=== PATIENT | female | born 1980 | race Two or more races ===

== ENCOUNTER 2017-07-04 10:27 | Emergency (ER) | payer SELFPAY ==
[2017-07-04 10:36] VITALS: BP 110/58; PULSE 114; TEMP 98.5; BMI 26.2
[2017-07-04] MEDS ORDERED: predniSONE 20 MG TABLET (UD) PO ONE (11:57)
[2017-07-04] MEDS ORDERED: predniSONE 20 MG TABLET (UD) ONE (12:05)
--- NOTE | 2017-07-04 12:15 | PDOC ---
History of Present Illness - General Chief Complaint: Asthma Stated Complaint: ASTHMA Time Seen by Provider: 07/04/17 11:26 History Source: Patient Exam Limitations: No Limitations - History of Present Illness Initial Comments: 07/04/17 12:11 37 yr female history of asthma no intubations or hospitalizations presents to ER with c/o cough and chest tight for 4 days due to change in weather. Pt states she has cough, no fever. Pt is speaking full sentences. Past History - Past Medical History Allergies/Adverse Reactions: Allergies Allergy/AdvReac Type Severity Reaction Status Date / Time No Known Allergies Allergy Verified 07/04/17 10:34 Home Medications: Ambulatory Orders Benzonatate [Tessalon Pearls -] 200 mg PO TID #42 cap 07/04/17 Prednisone [Deltasone -] 40 mg PO DAILY #10 tablet 07/04/17 Asthma: Yes - Immunization History Immunization Up to Date: Yes - Suicide/Smoking/Psychosocial Hx Smoking Status: No Smoking History: Never smoked Years of Tobacco Use: 0 Number of Cigarettes Smoked Daily: 0 Cigars Per Day: 0 Hx Alcohol Use: Yes (OCCASIONALLY) Drug/Substance Use Hx: No Substance Use Type: Alcohol *Physical Exam - Vital Signs Last Vital Signs Temp Pulse Resp BP Pulse Ox 98.5 F 114 H 20 110/58 100 07/04/17 10:34 07/04/17 10:34 07/04/17 10:34 07/04/17 10:34 07/04/17 10:34 - Physical Exam General Appearance: Yes: Nourished, Appropriately Dressed HEENT: positive: EOMI, RAINER, Normal ENT Inspection, TMs Normal, Pharynx Normal Neck: positive: Supple Respiratory/Chest: positive: Lungs Clear, Normal Breath Sounds. negative: Rhonchi, Wheezing Cardiovascular: positive: Regular Rhythm, Regular Rate Gastrointestinal/Abdominal: positive: Normal Bowel Sounds, Soft Extremity: positive: Normal Capillary Refill, Normal Inspection, Normal Range of Motion Integumentary: positive: Normal Color, Dry, Warm Neurologic: positive: Fully Oriented, Alert, Normal Mood/Affect, Normal Response , Motor Strength 5/5 ED Treatment Course - Medications Given in the ED: ED Medications Discontinued Medications Generic Name Dose Route Start Last Admin Trade Name Freq PRN Reason Stop Dose Admin Prednisone 60 mg 07/04/17 11:57 07/04/17 12:06 Deltasone - PO 07/04/17 11:58 60 mg ONCE ONE Administration Medical Decision Making - Medical Decision Making 07/04/17 12:12 cc: cough chest tight no shortness of breath pt had duoneb in traige and is now clear no wheezing pt feels better will give prednisone and tylenol 07/04/17 12:22 pt feels much better after nebulizer in triage will dc home strict follow up with PMD *DC/Admit/Observation/Transfer Diagnosis at time of Disposition: Asthmatic bronchitis - Discharge Dispostion Disposition: HOME Condition at time of disposition: Improved - Prescriptions Prescriptions: Prednisone [Deltasone -] 40 mg PO DAILY #10 tablet Benzonatate [Tessalon Pearls -] 200 mg PO TID #42 cap - Referrals Referrals: Violeta Etienne MD [Primary Care Provider] - - Patient Instructions Additional Instructions: drink pleanty of water to stay hydrated increase vitamin c and zinc intake to boost immune system take the next does prednisone tomorrow use your inhaler as needed tessalon for cough as needed
== END 2017-07-04 12:25 | disposition home or self-care (01) ==
LOC: JERFT 10:27
DX: J45.998 Other asthma (principal)
CPT/HCPCS: 99281-25

== ENCOUNTER 2017-07-06 13:23 | Emergency (ER) | payer SELFPAY ==
[2017-07-06 13:26] VITALS: BMI 26.2
[2017-07-06] MEDS ORDERED: ALBUTEROL SO4 2.5/IPRATROPIUM 0.5 INH SOL 3 ML VIAL.NEB. NEB ONE ×2 (14:23→14:43)
[2017-07-06] MEDS ORDERED: predniSONE 20 MG TABLET (UD) PO ONE (14:40)
--- NOTE | 2017-07-06 14:40 | PDOC ---
History of Present Illness - General Chief Complaint: Asthma Stated Complaint: SOB Time Seen by Provider: 07/06/17 14:17 History Source: Patient Exam Limitations: No Limitations - History of Present Illness Initial Comments: 07/06/17 14:31 The patient is a 37F with a PMH of asthma who presents to the ED with complaints of chest tightness. The patient states that she was here 2 days ago and felt better after a duoneb treatment and was discharged with an albuterol inhaler and prednisone. She has not taken her prednisone today. Her only complaint is chest tightness which started this morning without relief from her inhaler. She denies CP, SOB, sore throat, fever and chills. Past History - Past Medical History Allergies/Adverse Reactions: Allergies Allergy/AdvReac Type Severity Reaction Status Date / Time No Known Allergies Allergy Verified 07/06/17 13:26 Home Medications: Ambulatory Orders Benzonatate [Tessalon Pearls -] 200 mg PO TID #42 cap 07/04/17 Prednisone [Deltasone -] 40 mg PO DAILY #10 tablet 07/04/17 Asthma: Yes COPD: No - Immunization History Immunization Up to Date: Yes - Suicide/Smoking/Psychosocial Hx Smoking Status: No Smoking History: Never smoked Years of Tobacco Use: 0 Number of Cigarettes Smoked Daily: 0 Cigars Per Day: 0 Hx Alcohol Use: Yes (SOCIAL) Drug/Substance Use Hx: No Substance Use Type: Alcohol Review of Systems - Review of Systems Able to Perform ROS?: Yes Comments:: 07/06/17 14:41 GENERAL/CONSTITUTIONAL: No fever or chills. No weakness. HEAD, EYES, EARS, NOSE AND THROAT: No change in vision. No ear pain or discharge. No sore throat. GASTROINTESTINAL: No nausea, vomiting, diarrhea, constipation, or abdominal pain. GENITOURINARY: No dysuria, frequency, hematuria, or change in urination. CARDIOVASCULAR: Positive for chest tightness. No chest pain, palpitations, or lightheadedness. RESPIRATORY: Positive for shortness of breath with deep inhalation, cough, and wheezing. No shortness of breath or hemoptysis. MUSCULOSKELETAL: No joint or muscle swelling or pain. No neck or back pain. SKIN: No rash or lesions. NEUROLOGIC: No headache, numbness, tingling, weakness, loss of consciousness, or change in strength/sensation. ENDOCRINE: No increased thirst. No abnormal weight change. HEMATOLOGIC/LYMPHATIC: No anemia, easy bleeding, or history of blood clots. ALLERGIC/IMMUNOLOGIC: No hives or skin allergy. Is the patient limited Uzbek proficient: No *Physical Exam - Vital Signs Last Vital Signs Temp Pulse Resp BP Pulse Ox 97.3 F L 93 H 20 114/77 99 07/06/17 13:24 07/06/17 13:24 07/06/17 13:24 07/06/17 13:24 07/06/17 13:24 - Physical Exam Comments: 07/06/17 14:42 GENERAL: Well developed, well nourished. Awake and alert. No acute distress. HEENT: Normocephalic, atraumatic. Moist mucous membranes. Oropharynx is clear. NECK: Supple. Full ROM. No JVD. CARDIOVASCULAR: Regular rate and rhythm. No murmurs, rubs, or gallops. Distal pulses are 2+ and symmetric. PULMONARY: Very mild wheezing in LUIS MANUEL lung field. No evidence of respiratory distress. No rales, crackles, or rhonchi. ABDOMINAL: Soft. Non-tender. Non-distended. No rebound or guarding. No organomegaly. Normoactive bowel sounds. GENITOURINARY: No CVA tenderness bilaterally. MUSCULOSKELETAL: Normal range of motion at all joints. No bony deformities or tenderness. EXTREMITIES: No cyanosis. No clubbing. No edema. No calf tenderness. SKIN: Warm and dry. Normal capillary refill. No rashes. No jaundice. NEUROLOGICAL: Alert, awake, appropriate. Normal speech. Gait is normal without ataxia. PSYCHIATRIC: Cooperative. Good eye contact. Appropriate mood and affect. Medical Decision Making - Medical Decision Making 07/06/17 14:43 The patient is a 37F with a PMH of asthma who is presenting with complaints of chest tightness. The patient is not in respiratory distress, has clear lung tran except for a very mild expiratory wheeze in her LUIS MANUEL lung field. I will give her 1 duoneb treatment and prednisone. Because this is her second presentation in 2 days, I will also order a CXR to r/o PNA. Will reassess when labs/imaging return. 07/06/17 18:53 Patient states she is feeling better. Wheezes are no longer present. I have discussed that the patient must follow up with her PCP. She agrees and is ready for d/c. *DC/Admit/Observation/Transfer Diagnosis at time of Disposition: Asthma Qualifiers: Asthma severity: mild Asthma persistence: unspecified Asthma complication type : uncomplicated Qualified Code(s): J45.909 - Unspecified asthma, uncomplicated; J45.909 - Unspecified asthma, uncomplicated; J45.909 - Unspecified asthma, uncomplicated - Discharge Dispostion Disposition: HOME Condition at time of disposition: Improved Admit: No - Patient Instructions Printed Discharge Instructions: Asthma -- Adult Additional Instructions: Please return to the ER if symptoms persist, worsen, or new symptoms arise. Please follow up with your primary care physician in 2-3 days. Please return to the ER if you have any signs or symptoms of chest pain, shortness of breath, uncontrollable fever, chills, nausea, vomiting, numbness, tingling, or weakness in any part of your body, changes in vision, or slurred speech. Please continue to take your medications as prescribed. Print Language: PAKISTANI
[2017-07-06] MEDS ORDERED: predniSONE 20 MG TABLET (UD) ONE (14:44)
--- NOTE | 2017-07-06 18:52 | PDOC ---
Attending Attestation - Resident Resident Name: LexjenniferdhruvJose - ED Attending Attestation I have performed the following: I have examined & evaluated the patient, The case was reviewed & discussed with the resident, I agree w/resident's findings & plan, Exceptions are as noted - Medical Decision Making 07/06/17 18:51 37 yo F wtih h/o asthma here wtih wheezing c/o chest tightness. no h/o travel. no h/o pe or dvt. on steroids and nebs but didn't take them yet today. minimal wheezing on initial exam , on my repeat examination now no wheezing. plan : nebs. given daily steroid, cxr r/o associated infection. cxr negative. pt feels better. dc home with close followup. will see dr. clark or brenda. <Estefania Burnett - Last Filed: 07/06/17 18:51> - HPI HPI: 07/06/17 18:52 Pt is a 37 yo F with a PMHx of Asthma who presents with persistent SOB. Patient was seen on 07/04/2017 for the same complaint and was sent home with Albuterol pump and prednisone. Patient did not take her medications and states her symptoms have worsened. Patient reports new chest tightness and SOB upon deep inspiration. Patient denies any fever/chills. Patient denies any recent travel, immobility, sick contacts. - Physicial Exam PE: 07/06/17 18:53 GENERAL: Awake, alert, and fully oriented, in no acute distress HEAD: No signs of trauma EYES: PERRLA, EOMI, sclera anicteric, conjunctiva clear ENT: Auricles normal inspection, nares patent, Moist mucosa NECK: Normal ROM, supple, no lymphadenopathy, JVD, or masses LUNGS: Breath sounds equal, clear to auscultation bilaterally. No wheezes, and no crackles (post treatment) HEART: Regular rate and rhythm, normal S1 and S2, no murmurs, rubs or gallops ABDOMEN: Soft, nontender, normoactive bowel sounds. No guarding, no rebound. No masses EXTREMITIES: Normal range of motion, no edema. No clubbing or cyanosis. No cords, erythema, or tenderness NEUROLOGICAL: Alert and oriented x3/ SKIN: Warm, Dry, normal turgor, no rashes or lesions noted. - Medical Decision Making 07/06/17 18:53 Documentation prepared by Landy Ahmadi, acting as medical terminologist for Estefania Burnett MD <Landy Ahmadi - Last Filed: 07/06/17 18:53>
[2017-07-06 19:04] VITALS: BP 116/70; PULSE 82; TEMP 98.2
== END 2017-07-06 19:05 | disposition home or self-care (01) ==
LOC: JER 13:23
PROC: 3E0F7GC Introduction of Other Therapeutic Substance into Respiratory Tract, Via Natural or Artificial Opening (ICD-10-PCS; principal; 2017-07-06)
DX: J45.909 Unspecified asthma, uncomplicated (principal)
CPT/HCPCS: 71020-TC; 84703; 99282-25

== ENCOUNTER 2018-10-08 08:58 | Emergency (ER) | payer SELFPAY | END 2018-10-08 10:45 | disposition home or self-care (01) | LOC: JERFT 08:58 ==

== ENCOUNTER 2018-11-02 12:08 | Emergency (ER) | payer SELFPAY ==
[2018-11-02 12:25] VITALS: BP 150/80; PULSE 95; TEMP 98.4; BMI 26.2
[2018-11-02] MEDS ORDERED: ALBUTEROL SO4 2.5/IPRATROPIUM 0.5 INH SOL 3 ML VIAL.NEB. NEB ONE (12:25)
--- NOTE | 2018-11-02 12:48 | PDOC ---
History of Present Illness - General Chief Complaint: Asthma Stated Complaint: ASTHMA Time Seen by Provider: 11/02/18 12:30 Exam Limitations: Clinical Condition - History of Present Illness Initial Comments: 11/02/18 12:39 Patient with history of asthma present with complaint of three-day history of cough, nasal congestion with intermittent asthma exacerbation which has been worsening this morning with shortness of breath. Patient reports she has been using rescue inhaler more often in the past 3 days. Patient denies fever, chills , dizziness. Patient denies any other symptoms Timing/Duration: getting worse Past History - Past Medical History Allergies/Adverse Reactions: Allergies Allergy/AdvReac Type Severity Reaction Status Date / Time No Known Allergies Allergy Verified 10/08/18 09:09 Home Medications: Ambulatory Orders Cyclobenzaprine HCl 10 mg PO Q8H PRN #14 tablet 10/08/18 Benzonatate [Tessalon Pearls -] 100 mg PO TID PRN #21 capsule 11/02/18 Ipratropium [place] 2 spray NS BID PRN #1 spray 11/02/18 Loratadine 10 mg PO DAILY #10 tablet 11/02/18 Prednisone [Deltasone] 20 mg PO BID 4 Days #8 tablet 11/02/18 Asthma: Yes COPD: No - Immunization History Immunization Up to Date: Yes - Suicide/Smoking/Psychosocial Hx Smoking Status: No Smoking History: Never smoked Years of Tobacco Use: 0 Number of Cigarettes Smoked Daily: 0 Cigars Per Day: 0 Hx Alcohol Use: Yes (SOCIAL) Drug/Substance Use Hx: No Substance Use Type: Alcohol Review of Systems - Review of Systems Able to Perform ROS?: Yes Is the patient limited Malay proficient: No Constitutional: Yes: See HPI. No: Chills, Fever, Malaise, Weakness HEENTM: Yes: Symptoms Reported, See HPI, Nose Congestion. No: Eye Pain, Blurred Vision, Tearing, Recent change in vision, Double Vision, Cataracts, Ear Pain, Ocular Prothesis, Ear Discharge, Nose Pain, Tinnitus, Nose Bleeding, Hearing Loss, Throat Pain, Throat Swelling, Mouth Pain, Dental Problems, Difficulty Swallowing, Mouth Swelling, Other Respiratory: Yes: Symptoms reported, See HPI, Cough, Shortness of Breath ( intermittent), Wheezing. No: Orthopnea, SOB with Exertion, SOB at Rest, Stridor , Productive cough, Hemoptysis, Other Cardiac (ROS): No: Symptoms Reported, See HPI, Chest Pain, Edema, Irregular Heart Rate, Lightheadedness, Palpitations, Syncope, Chest Tightness, Other ABD/GI: No: Constipated, Diarrhea, Nausea, Vomiting, Abdominal cramping All Other Systems: Reviewed and Negative *Physical Exam - Vital Signs Last Vital Signs Temp Pulse Resp BP Pulse Ox 98.4 F 95 H 20 150/80 99 11/02/18 12:18 11/02/18 12:18 11/02/18 12:18 11/02/18 12:18 11/02/18 12:18 - Physical Exam Comments: 11/02/18 12:40 GENERAL: Well developed, well nourished. Awake and alert. No acute distress. HEENT: Mild bilateral nasal congestion. Normocephalic, atraumatic. PERRLA, EOMI. No conjunctival pallor. Sclera are non-icteric. Moist mucous membranes. Oropharynx is clear. NECK: Supple. Full ROM. CARDIOVASCULAR: Regular rate and rhythm. No murmurs, rubs, or gallops. Distal pulses are 2+ and symmetric. PULMONARY: Mild diffuse wheezing.No evidence of respiratory distress. No rales or rhonchi. ABDOMINAL: Soft. Non-tender. Non-distended. No rebound or guarding. No organomegaly. Normoactive bowel sounds. MUSCULOSKELETAL Normal range of motion at all joints. SKIN: Warm and dry. No cyanosis. Normal capillary refill. No rashes. No jaundice. NEUROLOGICAL: Alert, awake, appropriate. Gait is normal without ataxia. PSYCHIATRIC: Cooperative. Good eye contact. Appropriate mood General Appearance: Yes: Nourished, Appropriately Dressed. No: Apparent Distress Moderate Sedation - Procedure Monitoring Vital Signs: Procedure Monitoring Vital Signs Temperature 98.4 F 11/02/18 12:18 Pulse Rate 95 H 11/02/18 12:18 Respiratory Rate 20 11/02/18 12:18 Blood Pressure 150/80 11/02/18 12:18 O2 Sat by Pulse Oximetry (%) 99 11/02/18 12:18 ED Treatment Course - Medications Given in the ED: ED Medications Discontinued Medications Generic Name Dose Route Start Last Admin Trade Name Freq PRN Reason Stop Dose Admin Albuterol/Ipratropium 2 amp 11/02/18 12:25 11/02/18 12:25 Duoneb - NEB 11/02/18 12:26 2 amp NOW ONE Administration Medical Decision Making - Medical Decision Making 11/02/18 12:42 Patient with history of asthma present with complaint of three-day history of URI symptoms with asthma exacerbation which has been worsening this morning. Exam significant for mild diffuse wheezing with no respiratory distress. Nebulizer treatment with Atrovent and albuterol ordered. Patient be discharged home on prednisone for 4 days, Tessalon Perles for cough antihistamine and nasal spray for nasal congestion with PCP follow-up. *DC/Admit/Observation/Transfer Diagnosis at time of Disposition: Cough Asthma Qualifiers: Asthma severity: mild Asthma persistence: intermittent Asthma complication type : with acute exacerbation Qualified Code(s): J45.21 - Mild intermittent asthma with (acute) exacerbation URI (upper respiratory infection) Qualifiers: URI type: unspecified URI Qualified Code(s): J06.9 - Acute upper respiratory infection, unspecified - Discharge Dispostion Disposition: HOME Condition at time of disposition: Stable Decision to Admit order: No - Prescriptions Prescriptions: Benzonatate [Tessalon Pearls -] 100 mg PO TID PRN #21 capsule PRN Reason: Cough Ipratropium [place] 2 spray NS BID PRN #1 spray PRN Reason: nasal congestion Loratadine 10 mg PO DAILY #10 tablet Prednisone [Deltasone] 20 mg PO BID 4 Days #8 tablet - Referrals - Patient Instructions Printed Discharge Instructions: DI for Pneumonia -- Adult Additional Instructions: Take medications as prescribed. Come back to the emergency room if worsening shortness of breath or worsening asthma symptoms. Follow-up with primary care as needed. - Post Discharge Activity
[2018-11-02] MEDS ORDERED: methylPREDNISolone NA SUCC 125 MG/2 ML VIAL IM ONE (12:58)
[2018-11-02] MEDS ORDERED: methylPREDNISolone NA SUCC 125 MG/2 ML VIAL ONE (13:01)
== END 2018-11-02 13:21 | disposition home or self-care (01) ==
LOC: JERFT 12:08
PROC: 3E0F7GC Introduction of Other Therapeutic Substance into Respiratory Tract, Via Natural or Artificial Opening (ICD-10-PCS; principal; 2018-11-02)
PROC: 3E0233Z Introduction of Anti-inflammatory into Muscle, Percutaneous Approach (ICD-10-PCS; 2018-11-02)
DX: J45.21 Mild intermittent asthma with (acute) exacerbation (principal); J06.9 Acute upper respiratory infection, unspecified
CPT/HCPCS: 99281-25

== ENCOUNTER 2018-11-07 09:26 | Emergency (ER) | payer SELFPAY ==
[2018-11-07 09:41] VITALS: BP 123/75; PULSE 112; TEMP 98.2; BMI 25.8
[2018-11-07] MEDS ORDERED: ALBUTEROL SO4 2.5/IPRATROPIUM 0.5 INH SOL 3 ML VIAL.NEB. NEB ONE ×2 (11:26→11:27)
--- NOTE | 2018-11-07 11:39 | PDOC ---
Documentation entered by Emeli Stevens SCRIBE, acting as scribe for Deep Brooks MD. History of Present Illness - General Chief Complaint: Respiratory Stated Complaint: ASTHMA Time Seen by Provider: 11/07/18 10:07 History Source: Patient Exam Limitations: No Limitations - History of Present Illness Initial Comments: 11/07/18 11:45 The patient is a 38 year old female, with a significant past medical history of asthma (albuterol , who presents to the emergency department with persistent cough since 10/30/18. The patient states she was seen here on 11/02/18 for cough and cold symptoms where she was prescribed steroids and tessalon perles. She states her symptoms have not gotten worse, however, reports her cough has stayed constant. She states her son had the flu about 1 week prior to her developing her cough and cold symptoms. She states she did not receive a flu vaccine this season. She states her symptoms feel like her asthma and reports nebulizer treatments offer temporary relief of her symptoms. The patient denies chest pain, shortness of breath, headache and dizziness. The patient denies fever, chills, nausea, vomit, diarrhea and constipation. The patient denies dysuria, frequency, urgency and hematuria. Allergies: NKDA Past surgical history: none reported Social history: denies ETOH, tobacco, and illicit drugs Past History - Past Medical History Allergies/Adverse Reactions: Allergies Allergy/AdvReac Type Severity Reaction Status Date / Time No Known Allergies Allergy Verified 11/07/18 09:35 Home Medications: Ambulatory Orders Cyclobenzaprine HCl 10 mg PO Q8H PRN #14 tablet 10/08/18 Benzonatate [Tessalon Perle -] 100 mg PO TID PRN #21 capsule 11/02/18 Ipratropium [place] 2 spray NS BID PRN #1 spray 11/02/18 Loratadine 10 mg PO DAILY #10 tablet 11/02/18 Albuterol Sulfate Inhaler - [Ventolin HFA Inhaler -] 1 - 2 inh PO QID 11/07/18 Albuterol Sulfate Inhaler - [Ventolin Hfa Inhaler -] 1 - 2 inh PO Q4H #1 inhaler 11/07/18 predniSONE [Deltasone -] 60 mg PO DAILY #24 tablet 11/07/18 Asthma: Yes COPD: No - Immunization History Immunization Up to Date: Yes - Suicide/Smoking/Psychosocial Hx Smoking Status: No Smoking History: Never smoked Years of Tobacco Use: 0 Number of Cigarettes Smoked Daily: 0 Cigars Per Day: 0 Hx Alcohol Use: Yes (SOCIAL) Drug/Substance Use Hx: No Substance Use Type: Alcohol Review of Systems - Review of Systems Able to Perform ROS?: Yes Constitutional: No: Chills, Fever HEENTM: Yes: Nose Congestion. No: Throat Swelling Respiratory: Yes: Cough, Shortness of Breath Cardiac (ROS): No: Chest Pain, Edema, Palpitations, Syncope ABD/GI: No: Diarrhea, Vomiting Neurological: No: Headache All Other Systems: Reviewed and Negative *Physical Exam - Vital Signs Last Vital Signs Temp Pulse Resp BP Pulse Ox 98.2 F 112 H 20 123/75 100 11/07/18 09:39 11/07/18 09:39 11/07/18 09:39 11/07/18 09:39 11/07/18 09:39 - Physical Exam Comments: 11/07/18 11:45 GENERAL: The patient is awake, alert, and fully oriented, in no acute distress. HEAD: Normal with no signs of trauma. EYES: Pupils equal, round and reactive to light, extraocular movements intact, sclera anicteric, conjunctiva clear with no pallor. ENT: Ears normal, nares patent, oropharynx clear without exudates. Moist mucous membranes. NECK: Normal range of motion, supple without lymphadenopathy, JVD, or masses. LUNGS: Breath sounds equal, clear to auscultation bilaterally. No wheeze/ crackles. HEART: Regular rate and rhythm, normal S1 and S2 without murmur or rub. ABDOMEN: Soft/nontender/nondistended. BS wnl. No guarding or rebound. No palpable masses. No hepatosplenomegaly. EXTREMITIES: Normal range of motion, no edema. No clubbing or cyanosis. No cords, erythema, or tenderness. NEUROLOGICAL: Cranial nerves II through XII grossly intact. Normal speech, normal gait. PSYCH: Normal mood, normal affect. SKIN: Warm, Dry, normal turgor, no rashes or lesions noted. Moderate Sedation - Procedure Monitoring Vital Signs: Procedure Monitoring Vital Signs Temperature 98.2 F 11/07/18 09:39 Pulse Rate 112 H 11/07/18 09:39 Respiratory Rate 20 11/07/18 09:39 Blood Pressure 123/75 11/07/18 09:39 O2 Sat by Pulse Oximetry (%) 100 11/07/18 09:39 Heart Score/ECG Review #1 ECG reviewed & interpreted by me at: 11:58 General ECG Interpretation: Sinus Rhythm, Normal Rate (94 (during nebulizer)), Normal Intervals (qtc 445, IRBBB), No acute ischemic changes ED Treatment Course - RADIOLOGY Radiology Studies Ordered: Category Date Time Status CHEST PA & LAT [RAD] Stat Radiology 11/07/18 11:10 Ordered - Medications Given in the ED: ED Medications Discontinued Medications Generic Name Dose Route Start Last Admin Trade Name Freq PRN Reason Stop Dose Admin Albuterol/Ipratropium 1 amp 11/07/18 11:26 11/07/18 11:36 Duoneb - NEB 11/07/18 11:27 1 amp ONCE ONE Administration Medical Decision Making - Medical Decision Making 11/07/18 11:36 38-year-old female with history of mild intermittent asthma presents for second visit for persistent asthma exacerbation. Patient developed URI symptoms about 2 weeks ago after her son had been recently diagnosed with influenza, she herself never develops fevers or body aches. Her symptoms are isolated to nasal congestion and cough which triggered an asthma exacerbation. She was seen at urgent care and prescribed nebulizers and steroids (prednisone 20 mg twice daily for 4 days) and while her symptoms have not improved, they have also not worsened. Denies any fevers or chills, denies any lung pain, presents for evaluation. No DVT or PE risk factors. Tachycardic at triage, heart rate 80 on my examination Well-appearing with intermittent dry cough triggered by talking and deep inspiration No wheezing, no focally decreased breath sounds, good air entry without accessory muscle use Heart is regular without murmurs No edema or calf tenderness 38-year-old female with persistent asthma exacerbation, rule out underlying influenza or pneumonia. Suspect could benefit from higher dose steroids. EKG given tachycardia at triage, though now resolved Chest x-ray, influenza swab Nebulizer Reassess and disposition accordingly 11/07/18 12:45 Feels better after nebs, chest x-ray negative for pneumonia, influenza negative , EKG sinus with normal rate. Will discharge on increased steroid dosing, understands return criteria. *DC/Admit/Observation/Transfer Diagnosis at time of Disposition: URI (upper respiratory infection) Qualifiers: URI type: unspecified URI Qualified Code(s): J06.9 - Acute upper respiratory infection, unspecified Asthma Qualifiers: Asthma severity: mild Asthma persistence: intermittent Asthma complication type : with acute exacerbation Qualified Code(s): J45.21 - Mild intermittent asthma with (acute) exacerbation - Discharge Dispostion Disposition: HOME Condition at time of disposition: Improved - Prescriptions Prescriptions: Albuterol Sulfate Inhaler - [Ventolin Hfa Inhaler -] 1 - 2 inh PO Q4H #1 inhaler predniSONE [Deltasone -] 60 mg PO DAILY #24 tablet - Referrals Referrals: Zhao Mariano MD [Staff Physician] - - Patient Instructions Printed Discharge Instructions: DI for Asthma -- Adult Additional Instructions: Activity as tolerated. Stay hydrated. Flu tests and a chest x-ray were normal today. The symptoms are likely due to a viral upper respiratory infection that exacerbated your asthma. Continue the Ventolin pump as needed. Increase the steroid dosing as prescribed including the taper. Continue your medications as previously prescribed by your physician. You should follow up with a primary doctor as soon as possible regarding today' s emergency department visit. Consider following up with the [facility] as discussed. Return to the emergency department for any new or concerning symptoms, particularly persistent or worsening shortness of breath or wheezing, persistent or worsening cough or fevers or chills, chest pain. - Post Discharge Activity Deep Brooks MD, MD/DO: This documentation has been prepared by the Rodney willett Amanda, SCRIBE, under my direction and personally reviewed by me in its entirety. I confirm that the documentation accurately reflects all work, treatment, procedures, and medical decision making performed by me.
--- NOTE | 2018-11-07 16:12 | EKG ---
Test Reason : Blood Pressure : / mmHG Vent. Rate : 094 BPM Atrial Rate : 094 BPM P-R Int : 148 ms QRS Dur : 080 ms QT Int : 356 ms P-R-T Axes : 067 001 019 degrees QTc Int : 445 ms NORMAL SINUS RHYTHM POSSIBLE LEFT ATRIAL ENLARGEMENT BORDERLINE ECG WHEN COMPARED WITH ECG OF 24-NOV-2015 10:49, NONSPECIFIC T WAVE ABNORMALITY NOW EVIDENT IN ANTERIOR LEADS Confirmed by MD Foster, Galdino ([id number]) on 11/07/2018 4:12:45 PM Referred By: Confirmed By:Galdino Hutchison MD
== END 2018-11-07 13:07 | disposition home or self-care (01) ==
LOC: JER 09:26
PROC: 3E0F7GC Introduction of Other Therapeutic Substance into Respiratory Tract, Via Natural or Artificial Opening (ICD-10-PCS; principal; 2018-11-07)
DX: J45.21 Mild intermittent asthma with (acute) exacerbation (principal); J06.9 Acute upper respiratory infection, unspecified
CPT/HCPCS: 71046-TC-FY; 87804; 93005; 93010; 99282-25

== ENCOUNTER 2018-12-05 14:53 | Emergency (ER) | payer SELFPAY ==
[2018-12-05 15:08] VITALS: BP 117/68; PULSE 89; TEMP 98.3; BMI 26.2
--- NOTE | 2018-12-05 15:10 | PDOC ---
Rapid Medical Evaluation Chief Complaint: Chest Pain Time Seen by Provider: 12/05/18 15:06 Medical Evaluation: Allergies Allergy/AdvReac Type Severity Reaction Status Date / Time No Known Allergies Allergy Verified 11/07/18 09:35 12/05/18 15:07 The patient presents with a chief complaint of: intermittent lt sided cp lasting seconds I have performed a brief in-person evaluation of this patient: Pertinent physical exam findings: ambulatory, in no respiratory distress, vss, reproducible CP at left 2 nd ICS from sternal border to MCL , RRR I have ordered the following: ekg, toradol IM The patient will proceed to the ED for further evaluation. Discharge Disposition - Diagnosis Chest pain - Referrals - Patient Instructions - Post Discharge Activity
--- NOTE | 2018-12-05 15:39 | PDOC ---
History of Present Illness - General Chief Complaint: Chest Pain Stated Complaint: CHEST PAIN Time Seen by Provider: 12/05/18 15:06 - History of Present Illness Initial Comments: 12/05/18 15:36 38-year-old female without comorbidities presents for evaluation of left-sided chest pain 1 days. She states her pain started after cough. She states she just did a course of antibiotics and got over a one-month illness of bronchitis. Her chest pain she states is sharp and fleeting post tussive pain. No radiation of symptoms. Asymptomatic otherwise. No other related symptoms. Past History - Past Medical History Allergies/Adverse Reactions: Allergies Allergy/AdvReac Type Severity Reaction Status Date / Time No Known Allergies Allergy Verified 12/05/18 15:08 Home Medications: Ambulatory Orders Cyclobenzaprine HCl 10 mg PO Q8H PRN #14 tablet 10/08/18 Benzonatate [Tessalon Perle -] 100 mg PO TID PRN #21 capsule 11/02/18 Ipratropium [place] 2 spray NS BID PRN #1 spray 11/02/18 Loratadine 10 mg PO DAILY #10 tablet 11/02/18 Albuterol Sulfate Inhaler - [Ventolin HFA Inhaler -] 1 - 2 inh PO QID 11/07/18 Albuterol Sulfate Inhaler - [Ventolin Hfa Inhaler -] 1 - 2 inh PO Q4H #1 inhaler 11/07/18 predniSONE [Deltasone -] 60 mg PO DAILY #24 tablet 11/07/18 Asthma: Yes COPD: No - Immunization History Immunization Up to Date: Yes - Suicide/Smoking/Psychosocial Hx Smoking Status: No Smoking History: Never smoked Years of Tobacco Use: 0 Have you smoked in the past 12 months: No Number of Cigarettes Smoked Daily: 0 Cigars Per Day: 0 Information on smoking cessation initiated: No Hx Alcohol Use: No Drug/Substance Use Hx: No Substance Use Type: Alcohol Review of Systems - Review of Systems Constitutional: No: Fever HEENTM: No: Nose Congestion Respiratory: Yes: Cough. No: Shortness of Breath Cardiac (ROS): Yes: Chest Pain *Physical Exam - Vital Signs Last Vital Signs Temp Pulse Resp BP Pulse Ox 98.3 F 89 17 117/68 100 12/05/18 15:06 12/05/18 15:06 12/05/18 15:06 12/05/18 15:06 12/05/18 15:06 - Physical Exam Comments: 12/05/18 15:37 HEAD: NC/AT EYES: Conjuntiva clear Ears: Canals and TM's normal NOSE: No d/c THROAT: Moist mucous membrances, oral pharanx clear, uvula midline NECK: Supple without adenopathy CARDIAC: S1 S2 there is tenderness about the left costochondral junction about ribs 3 and 4 LUNGS: CTA Full and Equal breath sounds ABDOMEN: Soft NT ND MS: Full ROM in all joints without edema NEUROLOGIC: No gross sensory or motor deficits, NVID SKIN: Normal color and temperature no lesions or rashes Medical Decision Making - Medical Decision Making 12/05/18 15:37 Very reproducible chest pain. Costochondritis. Will treat with anti- inflammatories. *DC/Admit/Observation/Transfer Diagnosis at time of Disposition: Chest pain, Costochondral chest pain - Discharge Dispostion Disposition: HOME Condition at time of disposition: Stable Decision to Admit order: No - Referrals Referrals: Bo Sherwood [Non Staff, Medical] - - Patient Instructions Printed Discharge Instructions: Costochondritis, DI for Costochondritis Additional Instructions: Tylenol and Motrin as directed for pain. Return to the emergency room for worsening symptoms. Follow-up with your primary care physician in one to 2 days for further evaluation and treatment options. Activity until pain subsides. - Post Discharge Activity
--- NOTE | 2018-12-07 11:49 | EKG ---
Test Reason : Blood Pressure : / mmHG Vent. Rate : 087 BPM Atrial Rate : 087 BPM P-R Int : 156 ms QRS Dur : 084 ms QT Int : 374 ms P-R-T Axes : 051 009 028 degrees QTc Int : 450 ms NORMAL SINUS RHYTHM POSSIBLE LEFT ATRIAL ENLARGEMENT BORDERLINE ECG WHEN COMPARED WITH ECG OF 07-NOV-2018 11:58, NO SIGNIFICANT CHANGE WAS FOUND Confirmed by SHERIF CASTRO MD ([id number]) on 12/07/2018 11:49:18 AM Referred By: Confirmed By:SHERIF CASTRO MD
== END 2018-12-05 15:48 | disposition home or self-care (01) ==
LOC: JERFT 14:53
DX: M94.0 Chondrocostal junction syndrome [Tietze] (principal)
CPT/HCPCS: 93005; 93010; 99281-25

== ENCOUNTER 2019-08-08 13:07 | Emergency (ER) | payer SELFPAY ==
[2019-08-08 13:13] VITALS: BP 95/65; PULSE 87; TEMP 98.1; BMI 25.8
[2019-08-08] MEDS ORDERED: DEXAMETHASONE LIQUID 0.5 MG/5 ML PO ONE (13:27)
[2019-08-08] MEDS ORDERED: DEXAMETHASONE SOD PHOSPHATE 10 MG/1 ML VIAL ONE (13:29)
[2019-08-08] MEDS ORDERED: ALBUTEROL SO4 2.5/IPRATROPIUM 0.5 INH SOL 3 ML VIAL.NEB. NEB ONE (13:29)
[2019-08-08] MEDS: ALBUTEROL SO4 2.5/IPRATROPIUM 0.5 INH SOL 3 ML VIAL.NEB. NEB SCH ×2 (13:33→13:45)
--- NOTE | 2019-08-08 13:49 | PDOC ---
History of Present Illness - General Chief Complaint: Cold Symptoms Stated Complaint: wheezing, cough Time Seen by Provider: 08/08/19 13:22 - History of Present Illness Initial Comments: 08/08/19 13:47 39-year-old female with a past medical history of asthma presents for evaluation of cough x2 weeks without relief of her home inhaler Past History - Past Medical History Allergies/Adverse Reactions: Allergies Allergy/AdvReac Type Severity Reaction Status Date / Time No Known Allergies Allergy Verified 08/08/19 13:13 Home Medications: Ambulatory Orders Cyclobenzaprine HCl 10 mg PO Q8H PRN #14 tablet 10/08/18 Benzonatate [Tessalon Perle -] 100 mg PO TID PRN #21 capsule 11/02/18 Ipratropium [place] 2 spray NS BID PRN #1 spray 11/02/18 Loratadine 10 mg PO DAILY #10 tablet 11/02/18 Albuterol Sulfate Inhaler - [Ventolin HFA Inhaler -] 1 - 2 inh PO QID 11/07/18 Albuterol Sulfate Inhaler - [Ventolin Hfa Inhaler -] 1 - 2 inh PO Q4H #1 inhaler 11/07/18 predniSONE [Deltasone -] 60 mg PO DAILY #24 tablet 11/07/18 Asthma: Yes COPD: No - Immunization History Immunization Up to Date: Yes - Psycho Social/Smoking Cessation Hx Smoking Status: No Smoking History: Never smoked Years of Tobacco Use: 0 Have you smoked in the past 12 months: No Number of Cigarettes Smoked Daily: 0 Cigars Per Day: 0 Information on smoking cessation initiated: No Hx Alcohol Use: No Drug/Substance Use Hx: No Substance Use Type: Alcohol Review of Systems - Review of Systems Constitutional: No: Fever Respiratory: Yes: Cough *Physical Exam - Vital Signs Last Vital Signs Temp Pulse Resp BP Pulse Ox 98.1 F 87 19 95/65 100 08/08/19 13:11 08/08/19 13:11 08/08/19 13:11 08/08/19 13:11 08/08/19 13:11 - Physical Exam 08/08/19 13:48 GENERAL: The patient is awake, alert, and fully oriented, in no acute distress. HEAD: Normal with no signs of trauma. EYES: sclera anicteric, conjunctiva clear. ENT: Ears normal NECK: Normal range of motion LUNGS: Breath sounds equal, clear to auscultation bilaterally. No wheezes, and no crackles. HEART: S1 and S2 without murmur, rub or gallop. ABDOMEN: Soft, nontender, normoactive bowel sounds. No guarding, no rebound. No masses. EXTREMITIES: Normal range of motion, no edema. No clubbing or cyanosis. No cords, erythema, or tenderness. NEUROLOGICAL: Cranial nerves II through XII grossly intact. Normal speech, normal gait. PSYCH: Normal mood, normal affect. SKIN: Warm, Dry, normal turgor, no rashes or lesions noted. ED Treatment Course - Medications Given in the ED: ED Medications Discontinued Medications Generic Name Dose Route Start Last Admin Trade Name Freq PRN Reason Stop Dose Admin Dexamethasone 10 mg 08/08/19 13:27 08/08/19 13:32 Decadron Liquid - PO 08/08/19 13:28 10 mg ONCE ONE Administration Medical Decision Making - Medical Decision Making 08/08/19 13:48 1 DuoNeb was given. Patient has full and equal breath sounds without change from her baseline examination. This is most likely a viral cough. She was also given Decadron. She will continue with her home medications and follow-up with her primary care physician. Most likely a viral upper respiratory infection Discharge - Discharge Information Problems reviewed: Yes Clinical Impression/Diagnosis: URI (upper respiratory infection) Condition: Improved Disposition: HOME - Admission No - Follow up/Referral Referrals: Nanette Gallo MD [Staff Physician] - - Patient Discharge Instructions Additional Instructions: Return to the emergency room for worsening symptoms. Continue with your inhaler as directed. Follow-up with your primary care physician in 1 to 2 days without fail for further evaluation and treatment options. - Post Discharge Activity
== END 2019-08-08 14:21 | disposition home or self-care (01) ==
LOC: JERFT 13:07
PROC: 3E0F7GC Introduction of Other Therapeutic Substance into Respiratory Tract, Via Natural or Artificial Opening (ICD-10-PCS; principal; 2019-08-08)
DX: J06.9 Acute upper respiratory infection, unspecified (principal); J45.909 Unspecified asthma, uncomplicated
CPT/HCPCS: 99281-25

== ENCOUNTER 2019-09-05 10:20 | Emergency (ER) | payer SELFPAY ==
[2019-09-05 10:36] VITALS: BP 127/69; PULSE 86; TEMP 98.8; BMI 26.6
--- NOTE | 2019-09-05 11:06 | PDOC ---
History of Present Illness - General History Source: Patient - History of Present Illness Presenting Symptoms: Chest Pain - General Chief Complaint: Chest Pain Stated Complaint: CHEST PAIN WHILE BREATHING Time Seen by Provider: 09/05/19 11:04 Past History - Past Medical History Asthma: Yes COPD: No - Immunization History Immunization Up to Date: Yes - Psycho Social/Smoking Cessation Hx Smoking Status: No Smoking History: Never smoked Years of Tobacco Use: 0 Have you smoked in the past 12 months: No Number of Cigarettes Smoked Daily: 0 Cigars Per Day: 0 Information on smoking cessation initiated: No Hx Alcohol Use: No Drug/Substance Use Hx: No Substance Use Type: Alcohol - Past Medical History Allergies/Adverse Reactions: Allergies Allergy/AdvReac Type Severity Reaction Status Date / Time No Known Allergies Allergy Verified 08/08/19 13:13 Home Medications: Ambulatory Orders Albuterol Sulfate Inhaler - [Ventolin HFA Inhaler -] 1 - 2 inh PO QID 11/07/18 Albuterol Sulfate Inhaler - [Ventolin Hfa Inhaler -] 1 - 2 inh PO Q4H #1 inhaler 11/07/18 Benzonatate [Tessalon [place] -] 100 mg PO TID #21 capsule 09/05/19 Review of Systems - Review of Systems Constitutional: No: Chills, Fever Respiratory: Yes: Cough. No: Shortness of Breath, Wheezing Cardiac (ROS): Yes: Chest Pain. No: Lightheadedness, Palpitations, Syncope *Physical Exam - Physical Exam General Appearance: Yes: Appropriately Dressed. No: Apparent Distress HEENT: positive: Normal Voice Neck: positive: Supple Respiratory/Chest: positive: Lungs Clear, Normal Breath Sounds. negative: Chest Tender, Respiratory Distress Cardiovascular: positive: Regular Rate, S1, S2 Integumentary: positive: Dry, Warm Neurologic: positive: Fully Oriented, Alert, Normal Mood/Affect - Vital Signs Last Vital Signs Temp Pulse Resp BP Pulse Ox 98.8 F 86 18 127/69 99 09/05/19 10:33 09/05/19 10:33 09/05/19 10:33 09/05/19 10:33 09/05/19 10:33 Medical Decision Making - Medical Decision Making 09/05/19 11:48 39-year-old female history of asthma, no admissions or intubations, here withanterior and r sided CP that started several days ago, worse with cough. States she has had a mostly dry cough for the past several weeks. No hemoptysis , shortness of breath, fever or chills. Does not feel like her asthma per pt. No RFs for DVT/PE see exam M/l pleuritic CP in setting of cough, no cardiac RF and PERCs out Stable w/ clear chest/lungs EKG and CXR unremarkable Dc w/ OTC meds prn pain and f/u with PMD as needed (Mari Morin) 09/05/19 13:40 I reviewed the case of the mid-level practitioner and was available for consultation while in the emergency department (Polo Hathaway) Discharge - Discharge Information Problems reviewed: Yes - Discharge Information Clinical Impression/Diagnosis: Chest pain Qualifiers: Chest pain type: unspecified Qualified Code(s): R07.9 - Chest pain, unspecified Condition: Stable Disposition: HOME - Additional Discharge Information Prescriptions: Benzonatate [Tessalon [place] -] 100 mg PO TID #21 capsule - Patient Discharge Instructions Additional Instructions: Because of your chest pain is most likely secondary to soreness from your cough persistent cough Take Motrin or Tylenol for pain as needed Take Tessalon for cough as prescribed
--- NOTE | 2019-09-05 17:28 | EKG ---
Test Reason : Blood Pressure : / mmHG Vent. Rate : 076 BPM Atrial Rate : 076 BPM P-R Int : 170 ms QRS Dur : 084 ms QT Int : 396 ms P-R-T Axes : 068 028 034 degrees QTc Int : 445 ms NORMAL SINUS RHYTHM POSSIBLE LEFT ATRIAL ENLARGEMENT BORDERLINE ECG WHEN COMPARED WITH ECG OF 05-DEC-2018 14:54, NO SIGNIFICANT CHANGE WAS FOUND BASELINE ARTIFACT Confirmed by KACEY GUAJARDO, MAR ([id number]) on 09/05/2019 5:28:00 PM Referred By: Confirmed By:MAR ERAZO MD
== END 2019-09-05 11:56 | disposition home or self-care (01) ==
LOC: JER 10:20
DX: R07.9 Chest pain, unspecified (principal)
CPT/HCPCS: 71046-TC-FY; 93005; 93010; 99281-25

== ENCOUNTER 2021-09-14 13:46 | Emergency (ER) | payer OTHER ==
[2021-09-14 14:18] VITALS: BP 121/78; PULSE 80; TEMP 98; BMI 26.2
[2021-09-14] MEDS ORDERED: BACITRACIN 15 GM TUBE TOPICAL OINTMENT TP ONE (14:37)
[2021-09-14] MEDS ORDERED: IBUPROFEN 600 MG TABLET (FP) PO ONE ×2 (14:37→14:39)
[2021-09-14] MEDS ORDERED: BACITRACIN 15 GM TUBE TOPICAL OINTMENT ONE (14:39)
== END 2021-09-14 17:15 | disposition home or self-care (01) ==
LOC: JER 13:46 → JERFT 13:46
PROC: 2W3CX1Z Immobilization of Right Lower Arm using Splint (ICD-10-PCS; principal; 2021-09-14)
DX: M79.631 Pain in right forearm (principal); M25.521 Pain in right elbow; M25.531 Pain in right wrist
CPT/HCPCS: 29125; 73070-TC-RT-FY; 73090-TC-RT-FY; 73110-TC-RT-FY; 73130-TC-RT-FY; 99284-25

== ENCOUNTER 2023-01-05 07:39 | Emergency (ER) | payer OTHER ==
[2023-01-05 08:01] VITALS: BMI 26.2
[2023-01-05 09:38] LABS: PH,URINE 6.5 (5.0-8.0); URINE APPEARANCE CLEAR; URINE BILIRUBIN NEGATIVE (NEGATIVE); URINE COLOR YELLOW; URINE GLUCOSE (UA) NEGATIVE (NEGATIVE); URINE KETONE NEGATIVE (NEGATIVE); URINE LEUK ESTERASE NEGATIVE (NEGATIVE); URINE NITRITE NEGATIVE (NEGATIVE); URINE PROTEIN NEGATIVE (NEGATIVE); URINE UROBILINOGEN 0.2 mg/dL (0.2-1.0)
[2023-01-05 09:41] LABS: HCG,QUALITATIVE URINE Negative
[2023-01-05 09:44] LABS: BASO % 0.5 % (0-2.0); EOS % 2.2 % (0-4.5); HEMOGLOBIN 11.7 GM/dL (10.7-15.3); LYMPH % 13.5 % (8-40); MCH 23.6 pg (25.7-33.7); MCHC 32.6 g/dl (32.0-36.0); MEAN CELL VOLUME 72.5 fl (80-96); MEAN PLT VOLUME 8.7 fl (7.5-11.1); NEUT % 77.8 % (42.8-82.8); PLATELET COUNT 310 10^3/uL (134-434); RBC 4.97 M/mm3 (3.60-5.2); WHITE BLOOD COUNT 8.1 K/mm3 (4.0-10.0)
[2023-01-05 09:56] LABS: CALCIUM 9.4 mg/dL (8.5-10.1)
[2023-01-05 09:58] LABS: ALBUMIN 4.6 g/dl (3.4-5.0); BLOOD UREA NITROGEN 8.9 mg/dL (7-18)
[2023-01-05 10:00] LABS: CREATININE 0.8 mg/dL (0.55-1.3)
[2023-01-05 10:02] LABS: BILIRUBIN,TOTAL 0.3 mg/dL (0.2-1); TOT PROT 8.8 g/dl (6.4-8.2)
[2023-01-05 13:36] VITALS: BP 114/64; PULSE 70; RESP 16; TEMP 98
== END 2023-01-05 13:37 | disposition home or self-care (01) ==
LOC: JER 07:39
DX: R55 Syncope and collapse (principal); R20.2 Paresthesia of skin; R25.1 Tremor, unspecified; H53.8 Other visual disturbances; R00.2 Palpitations
CPT/HCPCS: 36415; 70450-TC; 71045-TC-FY; 80053; 81003; 84703; 85025; 86140; 93005; 93010; 93880-TC; 99285-25

== ENCOUNTER 2024-01-03 08:03 | Emergency (ER) | payer SELFPAY ==
[2024-01-03 08:14] VITALS: BP 99/72; PULSE 84; RESP 18; TEMP 98.2; BMI 27.3
[2024-01-03] MEDS ORDERED: LIDOCAINE 4% PATCH TP ONE (09:53)
[2024-01-03] MEDS: SODIUM CHLORIDE 0.9% 500 ML INFUS.BAG IV ONE (10:00)
[2024-01-03] MEDS: LIDOCAINE 5% TOPICAL PATCH TP ONE (10:00)
[2024-01-03 10:22] LABS: BASO % 0.7 % (0-2.0); EOS % 4.6 % (0-4.5); LYMPH % 21.5 % (8-40); MCH 23.7 pg (25.7-33.7); MCHC 31.2 g/dl (32.0-36.0); MEAN PLT VOLUME 7.6 fl (7.5-11.1); MONO % 7.7 % (3.8-10.2); NEUT % 65.5 % (42.8-82.8); PLATELET COUNT 290 10^3/uL (134-434); RBC 4.21 M/mm3 (3.60-5.2); RDW 16.2 % (11.6-15.6); WHITE BLOOD COUNT 5.7 K/mm3 (4.0-10.0)
[2024-01-03 10:52] LABS: POTASSIUM 3.8 mmol/L (3.5-5.1)
[2024-01-03 10:54] LABS: CALCIUM 8.6 mg/dL (8.5-10.1)
[2024-01-03 10:55] LABS: ALBUMIN 3.4 g/dl (3.4-5.0); BLOOD UREA NITROGEN 10.3 mg/dL (7-18); MAGNESIUM 2.1 mg/dL (1.8-2.4)
[2024-01-03 10:58] LABS: CREATININE 0.6 mg/dL (0.55-1.3)
[2024-01-03 11:00] LABS: BILIRUBIN,TOTAL 0.4 mg/dL (0.2-1); TOT PROT 6.8 g/dl (6.4-8.2)
[2024-01-03] MEDS ORDERED: LIDOCAINE PATCH REMOVAL MC ONE (22:00)
== END 2024-01-03 11:43 | disposition home or self-care (01) ==
LOC: JER 08:03
DX: R20.2 Paresthesia of skin (principal); R00.2 Palpitations; S46.812A Strain of other muscles, fascia and tendons at shoulder and upper arm level, left arm, initial encounter; X58.XXXA Exposure to other specified factors, initial encounter
CPT/HCPCS: 36415; 80053; 83735; 84439; 84443; 85025; 93005; 93010; 99284-25